=== PATIENT | female | born 1980 | race Asian ===

== ENCOUNTER 2019-04-16 15:39 | Emergency (ER) | payer MEDICAID ==
[~2019-04-16] VITALS: Ht 157.5 cm; Wt 65.9 kg
[2019-04-16] MEDS ORDERED: MECL-111 PO (16:45)
[2019-04-16 18:46] LABS: BASOPHILS % (AUTO) 1.1 % (0.0-2.0); EOSINOPHILS % (AUTO) 0.8 % (1.0-6.0); HEMOGLOBIN 12.9 g/dL (12.0-16.0); LYMPHOCYTES # (AUTO) 1.6 K/uL (1.0-4.8); MEAN CORPUSCULAR HEMOGLOBIN 28.5 pg (26.0-34.0); MEAN CORPUSCULAR HGB CONC 33.2 G/dL (31.0-37.0); MEAN CORPUSCULAR VOLUME 86 fL (80-100); MONOCYTES # (AUTO) 0.5 K/uL (0.1-1.0); MONOCYTES % (AUTO) 6.1 % (2.0-9.0); NEUTROPHILS # (AUTO) 5.6 K/uL (1.8-7.7); PLATELET COUNT (AUTO) 267 K/uL (150-450); RED BLOOD CELL COUNT(AUTO) 4.53 MIL/uL (4.00-5.20); RED CELL DISTRIBUTION WIDTH 13.5 % (11.5-14.5)
[2019-04-16 19:04] LABS: ANION GAP 12 mmol/L (8-16); CALCIUM, TOTAL 9.9 mg/dL (8.8-10.5); CARBON DIOXIDE 23 mmol/L (22-29); CHLORIDE 101 mmol/L (98-107); CREATININE 0.66 mg/dL (0.60-1.30); GLOMERULAR FILTR. RATE CALC > 60 mL/min (>60); GLUCOSE,RANDOM 82 mg/dL (70-110); POTASSIUM 3.8 mmol/L (3.5-5.1); SODIUM SERUM 136 mmol/L (136-145); UREA NITROGEN, BLOOD 12 mg/dL (7-18)
[2019-04-16 19:10] LABS: ALANINE AMINOTRANSFERASE 8 U/L (12-78); ALBUMIN 4.3 g/dL (3.4-5.0); ALKALINE PHOSPHATASE 42 U/L (46-116); ASPARTATE AMINOTRANSFERASE 18 U/L (15-37); BILIRUBIN,TOTAL 0.2 mg/dL (0.1-1.0); TOTAL PROTEIN, SERUM 8.7 g/dL (6.4-8.2)
[2019-04-16 19:39] VITALS: BP 138/79
== END 2019-04-16 19:44 | disposition home or self-care (01) ==
LOC: EMS 15:40
DX: H81.10 Benign paroxysmal vertigo, unspecified ear (principal); Z79.899 Other long term (current) drug therapy
CPT/HCPCS: 93005

== ENCOUNTER 2019-06-23 02:28 | Emergency (ER) | payer BC, MEDICAID ==
[~2019-06-23] VITALS: Ht 157.5 cm; Wt 62.7 kg
[~2019-06-23 02:28] MED LIST: MECL-111 PO
[2019-06-23] MEDS ORDERED: OCP PO (02:40)
[2019-06-23 03:29] LABS: BASOPHILS % (AUTO) 0.8 % (0.0-2.0); HEMATOCRIT 36.5 % (36-46); HEMOGLOBIN 12.2 g/dL (12.0-16.0); LYMPHOCYTES # (AUTO) 1.6 K/uL (1.0-4.8); LYMPHOCYTES % (AUTO) 23.2 % (22.0-44.0); MEAN CORPUSCULAR HEMOGLOBIN 28.6 pg (26.0-34.0); MEAN CORPUSCULAR HGB CONC 33.5 G/dL (31.0-37.0); MEAN CORPUSCULAR VOLUME 86 fL (80-100); MONOCYTES # (AUTO) 0.6 K/uL (0.1-1.0); MONOCYTES % (AUTO) 9.2 % (2.0-9.0); NEUTROPHILS # (AUTO) 4.4 K/uL (1.8-7.7); NEUTROPHILS % (AUTO) 64.8 % (40.0-70.0); PLATELET COUNT (AUTO) 249 K/uL (150-450); RED BLOOD CELL COUNT(AUTO) 4.27 MIL/uL (4.00-5.20); RED CELL DISTRIBUTION WIDTH 12.8 % (11.5-14.5)
[2019-06-23] MEDS ORDERED: ACETAMINOPHEN 500 MG TABLET PO ONE (03:30)
[2019-06-23] MEDS ORDERED: IBUPROFEN 600 MG TABLET PO ONE (03:30)
[2019-06-23 03:31] LABS: APPEARANCE,URINE CLEAR (CLEAR); BILIRUBIN,URINE NEGATIVE (NEGATIVE); GLUCOSE, URINE (UA) NEGATIVE (NEGATIVE); KETONES,URINE NEGATIVE (NEGATIVE); LEUKOCYTE ESTERASE ,URINE NEGATIVE (NEGATIVE); NITRATE,URINE NEGATIVE (NEGATIVE); OCCULT BLOOD,URINE TRACE (NEGATIVE); PH,URINE 6.5 (5.0-8.0); PROTEIN,URINE NEGATIVE (NEGATIVE); UROBILINOGEN,URINE 0.2 mg/dL (<=1.0)
[2019-06-23 03:43] LABS: ANION GAP 6 mmol/L (8-16); CALCIUM, TOTAL 9.3 mg/dL (8.8-10.5); CARBON DIOXIDE 27 mmol/L (22-29); CHLORIDE 102 mmol/L (98-107); CREATININE 0.71 mg/dL (0.60-1.30); GLOMERULAR FILTR. RATE CALC > 60 mL/min (>60); GLUCOSE,RANDOM 99 mg/dL (70-110); POTASSIUM 3.9 mmol/L (3.5-5.1); SODIUM SERUM 135 mmol/L (136-145); UREA NITROGEN, BLOOD 9 mg/dL (7-18)
[2019-06-23 03:51] LABS: ALANINE AMINOTRANSFERASE 10 U/L (12-78); ALKALINE PHOSPHATASE 45 U/L (46-116); ASPARTATE AMINOTRANSFERASE 14 U/L (15-37); BILIRUBIN,TOTAL 0.2 mg/dL (0.1-1.0); HCG,QUANTITATIVE < 1 mIU/mL (0-6); LIPASE 143 U/L (73-393); TOTAL PROTEIN, SERUM 8.2 g/dL (6.4-8.2)
[2019-06-23 03:51] LABS: BACTERIA,URINE Few /HPF (None Seen); RBC,URINE 0-2 /HPF (0-2); SQUAMOUS EPITHELIAL CELL,UR Few /LPF (None Seen)
[2019-06-23 04:25] VITALS: BP 105/69
== END 2019-06-23 04:39 | disposition home or self-care (01) ==
LOC: EMS 02:29
DX: R07.89 Other chest pain (principal); R10.13 Epigastric pain; R51 Headache
CPT/HCPCS: 93005

== ENCOUNTER 2025-05-17 13:57 | Emergency (ER) | payer BC, MEDICAID, OTHER ==
[~2025-05-17] VITALS: Ht 160 cm; Wt 55.0 kg
[~2025-05-17 13:57] MED LIST changes: -MECL-111 PO; +OCP PO
[2025-05-17 14:12] VITALS: TEMP 98.1
[2025-05-17] MEDS ORDERED: ATOR10TA69 PO (14:57)
[2025-05-17] MEDS: METOCLOPRAMIDE HCL 5 MG/ML 2 ML VIAL IVP ONE (15:22)
[2025-05-17] MEDS: SODIUM CHLORIDE 0.9% 1,000 ML IV ONE (15:22)
[2025-05-17] MEDS: KETOROLAC TROMETHAMINE 30 MG/ML VIAL IVP ONE (15:23)
[2025-05-17] MEDS ORDERED: IBUP-1492 PO (16:29)
[2025-05-17 16:48] VITALS: BP 106/57; PULSE 88; RESP 18; O2SAT 98
== END 2025-05-17 16:49 | disposition home or self-care (01) ==
LOC: EMS 14:23
DX: G44.209 Tension-type headache, unspecified, not intractable (principal); Z98.890 Other specified postprocedural states; Z79.899 Other long term (current) drug therapy
CPT/HCPCS: 99284; 96374; 96375; 84703; J1885; J2919; J1200; J2765; J7030